=== PATIENT | female | born 1950 | race Hispanic/Latino ===

== ENCOUNTER 2017-06-21 18:39 | Emergency (ER) | payer BC, OTHER ==
[~2017-06-21] VITALS: Ht 144.8 cm; Wt 71.7 kg
--- NOTE | 2017-06-21 20:40 | Diagnostic Imaging Report ---
EXAMINATION: Head CT without contrast. HISTORY:Status post fall. COMPARISON:None. TECHNIQUE: Multidetector axial images were obtained from the foramen magnum to the vertex without contrast. The images were reconstructed using brain and bone algorithms. Thin section brain images were reformatted into coronal and sagittal planes. Intravenous contrast: None IMAGE QUALITY: Acceptable. FINDINGS: Skull/scalp: Small right parietal scalp edema/hematoma. No acute depressed or displaced calvarial fracture. Parenchyma: No abnormal density. No acute hemorrhage, mass or acute major vascular territorial infarct. Arteries: No density suggestive of thrombosis. Dural sinuses: No abnormal density suggestive of thrombosis. Ventricles: No hydrocephalus or displacement. Extra-axial spaces: No abnormal density. Brain volume: Generalized age-related cerebral volume loss. Craniocervical junction: No mass, Chiari malformation, or basilar invagination. Sella: No mass. Paranasal/mastoid sinuses: Imaged portions unremarkable. IMPRESSION: Small right parietal scalp edema/hematoma. No acute fracture. No acute posttraumatic intracranial abnormality. Generalized age-related cerebral volume loss. Signed by: Dr. Yanira Reyes M.D. on 06/21/2017 8:36 PM
[2017-06-21 22:36] VITALS: BP 125/70
== END 2017-06-21 23:23 | disposition home or self-care (01) ==
LOC: ER 18:39
DX: S00.83XA Contusion of other part of head, initial encounter (principal); W01.0XXA Fall on same level from slipping, tripping and stumbling without subsequent striking against object, initial encounter; Y92.008 Other place in unspecified non-institutional (private) residence as the place of occurrence of the external cause
CPT/HCPCS: 70450; 94760; 99283